=== PATIENT | male | born 1965 | race Caucasian/White ===

== ENCOUNTER 2021-08-02 17:18 | Emergency (ER) | payer OTHER, MEDICARE ==
[~2021-08-02 17:18] MED LIST: NORCO 5-325 TA1 EACH PO
[2021-08-02 18:34] LABS: BASOPHIL 0.5 % (0-2); EOSINOPHIL 0.7 % (0-5); HCT 45.9 % (42.0-52.0); HGB 15.7 g/dl (13.2-18.0); LYMPHOCYTE 11.5 % (15-48); MCH 30.5 pg (25.0-31.0); MCHC 34.2 g/dL (32.0-36.0); MCV 89.1 fL (78.0-100.0); MONOCYTE 5.5 % (0-12); MPV 9.7 fL (6.0-9.5); NEUTROPHIL 81.4 % (41-80); NRBC 0; PLT 242 K/uL (150-400); RBC 5.15 M/uL (4.70-6.00); WBC 12.3 K/uL (4.0-10.5)
[2021-08-02 18:42] LABS: BILIRUBIN NEGATIVE (NEGATIVE); BLOOD NEGATIVE Ery/uL (NEGATIVE); CLARITY CLEAR (CLEAR); COLOR YELLOW (YELLOW); GLUCOSE (U) NORMAL (NORMAL); LEUKOCYTES NEGATIVE Leu/uL (NEGATIVE); NITRITE NEGATIVE (NEGATIVE); PROTEIN NEGATIVE (NEGATIVE)
[2021-08-02 18:52] LABS: ALBUMIN 4.5 g/dL (3.4-5.0); BILIRUBIN - TOTAL 0.9 mg/dL (0.2-1.0); GLOBULIN (CALCULATION) 3.7 g/dL; POTASSIUM 3.7 mmol/L (3.5-5.1); TOTAL PROTEIN 8.2 g/dL (6.4-8.2)
[2021-08-04 08:11] LABS: HBSAG SCREEN Negative (Negative); HEP A AB, IGM Negative (Negative); HEP B CORE AB, IGM Negative (Negative); HEP C VIRUS AB <0.1 (0.0-0.9)
== END 2021-08-02 19:26 | disposition home or self-care (01) ==
LOC: FER 17:18
PROVIDERS: Physician Assistant
DX: R10.13 Epigastric pain (principal); R79.89 Other specified abnormal findings of blood chemistry; E78.5 Hyperlipidemia, unspecified; Z87.891 Personal history of nicotine dependence; Z79.899 Other long term (current) drug therapy
CPT/HCPCS: 36415; 80053; 80074; 81003; 83690; 85025